=== PATIENT | female | born 1980 | race Caucasian/White ===

== ENCOUNTER → 2024-04-16 | Day surgery (SDC) | payer OTHER ==
[~2024-04-16] MED LIST: FLUOXETINE HCL20 MG PO; HUMIRA40 MG/0.8 INJ; LIDOCAINE HCL 2% LOCAL INJ 5 ML SDV VIAL INJ ONE; MIDAZOLAM HCL 2 MG/2 ML VIAL ONE; PROPOFOL IV EMULSION 10 MG/ML 20 ML VIAL ONE; VIT D3 PO
[2024-04-16] MEDS: LACTATED RINGER'S 1,000 ML ONE (07:47)
[2024-04-16 09:40] VITALS: TEMP 98.4
[2024-04-16 10:10] VITALS: BP 150/90; PULSE 70; RESP 16; O2SAT 99
[2024-04-16] MEDS: METOCLOPRAMIDE HCL 10 MG/2ML VIAL ONE (10:15)
== END | disposition home or self-care (01) ==
LOC: OR 06:57
PROVIDERS: ATTEND Internal Medicine Gastroenterology
DX: K51.90 Ulcerative colitis, unspecified, without complications (principal); D12.4 Benign neoplasm of descending colon; K62.89 Other specified diseases of anus and rectum; K56.699 Other intestinal obstruction unspecified as to partial versus complete obstruction; K62.5 Hemorrhage of anus and rectum; R03.0 Elevated blood-pressure reading, without diagnosis of hypertension; E66.01 Morbid (severe) obesity due to excess calories; Z88.1 Allergy status to other antibiotic agents; Z91.040 Latex allergy status; Z79.899 Other long term (current) drug therapy; Z68.42 Body mass index [BMI] 45.0-49.9, adult; Z86.2 Personal history of diseases of the blood and blood-forming organs and certain disorders involving the immune mechanism; Z86.718 Personal history of other venous thrombosis and embolism; Z80.0 Family history of malignant neoplasm of digestive organs
CPT/HCPCS: 45380; 45385; 81025; J2003; J2250; J2704; J2765; J7121